=== PATIENT | male | born 1965 | race Caucasian/White ===

== ENCOUNTER 2020-01-03 15:28 | Emergency (ER) | payer BC, SELFPAY ==
[2020-01-03 15:34] VITALS: BP 203/88; PULSE 106; RESP 16; TEMP 36.2; O2SAT 97
--- NOTE | 2020-01-03 16:17 | ED.SKABFB ---
HPI - Skin/Abscess/Foreign Bdy General Chief complaint: Skin/Abscess/Foreign Body Stated complaint: LESION ON FACE FOR OVER A WEEK Time Seen by Provider: 01/03/20 15:44 History of Present Illness HPI narrative: Patient is a 54-year-old male who presents presents to the ER with a wound to the right cheek. It began about 1 week ago. He is seen his primary care doctor and has been started on Levaquin. He still has a couple days left. He is also using triamcinolone cream. Reports that started draining pus and that the lesion is going down in size and there is less redness and pain. No fevers or chills or sweats. No difficulty breathing or swallowing. Started off looking like an ingrown hair. Related Data Home Medications Medication Instructions Recorded Confirmed buspirone mg 01/03/20 01/03/20 gabapentin 01/03/20 insulin glargine [Basaglar KwikPen SUBCUT 01/03/20 U-100 Insulin] levofloxacin 01/03/20 losartan 01/03/20 metformin mg 01/03/20 neomycin-polymyxin B-dexameth drp 01/03/20 [Maxitrol] omeprazole 01/03/20 propranolol PO 01/03/20 simvastatin mg 01/03/20 timolol maleate drp 01/03/20 trazodone 01/03/20 triamcinolone acetonide applic TOPICAL 01/03/20 venlafaxine mg PO 01/03/20 ziprasidone HCl 01/03/20 Allergies Allergy/AdvReac Type Severity Reaction Status Date / Time morphine Allergy Unknown Pruritic Verified 01/03/20 15:36 rash fentanyl AdvReac Unknown Itching Verified 01/03/20 15:36 Review of Systems Constitutional: Constitutional: Denies chills and Denies fever(s) ENT: Denies dysphagia Respiratory: Respiratory: Denies cough and Denies dyspnea Integumentary/Breasts: Skin/Breast: Reports erythema and Reports rash Comments: Abscess PMFSH Past Medical History Medical History (Updated 01/03/20 @ 16:21 by Félix Miranda MD) Diabetes GERD (gastroesophageal reflux disease) Hypercholesterolemia Hypertension Family History Family History (Updated 11/07/13 @ 07:13 by DOCTOR UNKNOWN) Mother Family history of kidney disease Father Family history of chronic obstructive pulmonary disease Social History Social History Smoking status: Never smoker Alcohol intake: current Exam Narrative: Exam Narrative: GENERAL: Well-appearing, well-nourished, and in no acute distress. HEAD: Normocephalic, atraumatic. SKIN: Warm, dry. Reevaluate primary care carbuncle right face medical chest. With induration. Ulcerated center with white subcutaneous tissue with purulent drainage. No surrounding cellulitis. NEURO: No focal deficits. Alert and oriented x3. PSYCH: Normal mood and affect. Course Course Emergency Course: Patient informed of treatment plan. Purulent drainage expressed. Will give topical antibiotic for now and when he finishes his oral antibiotics. Recommend warm compresses and follow-up with his PCP. Not amenable for I&D. Vital Signs Vital signs: Vital Signs Temperature 97.2 F L 01/03/20 15:34 Pulse Rate 106 H 01/03/20 15:34 Respiratory Rate 16 01/03/20 15:34 Blood Pressure 203/88 H 01/03/20 15:34 Pulse Oximetry 97 01/03/20 15:34 Temperature 97.2 F L 01/03/20 15:34 Pulse Rate 106 H 01/03/20 15:34 Respiratory Rate 16 01/03/20 15:34 Blood Pressure 203/88 H 01/03/20 15:34 Pulse Oximetry 97 01/03/20 15:34 Discharge Plan Discharge Clinical Impression: Furuncle Patient Disposition: Home, Self-Care Condition: Stable Instructions: Antibiotic Form, Furunculosis and Carbunculosis (ED) Additional Instructions: Return to the ER if you have worsening pain, increased vomiting, or have additional concerns. Apply the topical antibiotic to help with the healing process. Follow-up with your primary care doctor. Also make sure you are taking your home medications as your blood pressure was quite high today. Prescriptions: New mupirocin 2 % ointment 1 applic topical TID Qty: 15 RF: 0 No Action venlaf
== END 2020-01-03 16:48 | disposition home or self-care (01) ==
PROVIDERS: Emergency Provider Emergency Medicine; PCP Family Medicine Adolescent Medicine
DX: L02.02 Furuncle of face (principal); E11.9 Type 2 diabetes mellitus without complications; K21.9 Gastro-esophageal reflux disease without esophagitis; E78.00 Pure hypercholesterolemia, unspecified; I10 Essential (primary) hypertension; Z79.4 Long term (current) use of insulin
CPT/HCPCS: 99283

== ENCOUNTER 2021-08-17 02:04 | Emergency (ER) | payer BC, SELFPAY ==
--- NOTE | ~2021-08-17 | CT_ITS ---
EXAMINATION: CT lumbar spine wo con DATE: 08/17/2021 02:51 INDICATION: Diffuse lumbar spine pain. Fall. TECHNIQUE: Computed tomography (CT) of the lumbar spine was performed without intravenous contrast. A utomated exposure control and iterative reconstruction technique were employed. The dose-length produ ct was 1384.48 mGy-cm. COMPARISON: CT abdomen and pelvis 07/08/2018 FINDINGS: There is 5 degrees dextrocurvature of lumbar spine. There is a compression fracture of L1 w ith 1/5 loss of height. Intervertebral disc heights are normal. The following disc levels are specifi jose discussed: L1-L2: The disc is bulging. There is severe bilateral facet joint osteoarthritis. There is mild bilat eral neural foraminal stenosis. There is no central canal stenosis. L2-L3: The disc does not extend beyond the endplate margin. There is severe bilateral facet joint ost eoarthritis. There is no neural foraminal stenosis. There is no central canal stenosis. L3-L4: The disc is bulging. There is severe bilateral facet joint osteoarthritis. There is mild bilat eral neural foraminal stenosis. There is mild central canal stenosis. L4-L5: The disc is bulging. There is severe right and moderate left facet joint osteoarthritis. There is mild bilateral neural foraminal stenosis. There is mild central canal stenosis. L5-S1: The disc does not extend beyond the endplate margin. There is severe bilateral facet joint ost eoarthritis. There is mild bilateral neural foraminal stenosis. There is no central canal stenosis. IMPRESSION: 1. Age indeterminant L1 compression fracture, new from 07/08/2018. 2. Mild lumbar spondylosis. Reviewed, dictated and finalized at location A.
--- NOTE | ~2021-08-17 | CT_ITS ---
EXAMINATION: CT brain wo con DATE: 08/17/2021 02:51 INDICATION: Syncope. TECHNIQUE: Computed tomography (CT) of the head was performed without intravenous contrast. The mA wa s adjusted according to patient size. Iterative reconstruction technique was employed. The dose-lengt h product was 605.33 mGy-cm. COMPARISON: Head CT 10/18/2018 FINDINGS: There are scattered areas of low attenuation in the cerebral white matter. There is no intr acranial hemorrhage, acute infarction, or abnormal intracranial mass lesion. The ventricles are cheryl l in size. There is mild mucosal thickening in the paranasal sinuses. There are likely changes of ocu lar lens replacement surgeries. The mastoid air cells are normal. IMPRESSION: 1. Worsened moderate nonspecific cerebral white matter disease, which likely represents chronic small vessel ischemic disease. Reviewed, dictated and finalized at location A. IMPRESSION: 1. Worsened moderate nonspecific cerebral white matter disease, which likely re presents chronic small vessel ischemic disease.
[2021-08-17 02:06] VITALS: BP 168/80; PULSE 103; RESP 18; TEMP 36.2; O2SAT 97
--- NOTE | 2021-08-17 02:31 | ECG_ITS ---
Measurements Intervals Orick Rate: 100 P: 63 GA: 161 QRS: 65 QRSD: 93 T: 60 QT: 343 QTc: 443 Interpretive Statements SINUS TACHYCARDIA NONSPECIFIC T-WAVE ABNORMALITY Electronically Signed On 08-17-2021 11:14:24 CDT by Pio Kennedy M.D.
--- NOTE | 2021-08-17 02:32 | ED.BACK ---
HPI - Back Pain/Injury General Chief Complaint: Back Pain/Injury Stated Complaint: fall, back pain Time Seen by Provider: 08/17/21 02:20 Source: patient History of Present Illness HPI Narrative: Patient presents with low back pain. Reports he was smoking marijuana started to cough and after coughing spell synopsized landing on a linoleum floor. The event happened a few hours ago but his pain is getting worse so he came to the ER for further evaluation. Enzo has had multiple back fractures related to trauma and is concerned for the same. He denies any bowel or bladder incontinence denies any focal numbness or weakness. Denies any chest pain lightheadedness dizziness now. Reports some mild nausea denies any vomiting. Related Data Home Medications Medication Instructions Recorded Confirmed insulin glargine 100 unit/mL (3 See Rx Instructions subcut DAILY 05/03/21 05/06/21 mL) subcutaneous pen (Basaglar KwikPen U-100 Insulin) losartan 100 mg tablet 100 mg PO DAILY 05/03/21 05/06/21 ziprasidone HCl 60 mg capsule 60 mg PO BID 05/03/21 05/06/21 Allergies Allergy/AdvReac Type Severity Reaction Status Date / Time morphine Allergy Unknown Pruritic Verified 08/17/21 02:09 rash fentanyl AdvReac Unknown Itching Verified 08/17/21 02:09 Review of Systems Review of Systems: CONSTITUTIONAL: Denies fever, chills, or sweats. EYES: Denies visual changes, redness, or discharge. ENT: Denies rhinorrhea, congestion, sore throat, or otalgia. CARDIOVASCULAR: Denies chest pain, palpitations, or edema. RESPIRATORY: Denies cough or dyspnea. GASTROINTESTINAL: Denies abdominal pain, nausea, vomiting, or diarrhea. GENITOURINARY: Denies dysuria or hematuria. SKIN: Denies rash or itching. MUSCULOSKELETAL: Denies joint pain, or myalgia. NEUROLOGIC: Denies headache, numbness, dizziness, or weakness. PSYCHIATRIC: Denies anxiety or depression. All systems reviewed & are unremarkable except as noted in HPI and below PMFSH Past Medical History Medical History Alcohol dependence, in remission Amputation of toe of left foot 2018, osteomyelitis Diabetes GERD (gastroesophageal reflux disease) Hypercholesterolemia Hypertension Vertebral fracture 2015 s/p trauma Surgical History Surgical History History of cholecystectomy 2012 Family History Family History Mother Family history of kidney disease Acute myocardial infarction Breast cancer Diabetes mellitus Hypertension Father Family history of chronic obstructive pulmonary disease Acute myocardial infarction Cerebrovascular accident Diabetes mellitus Hypertension Sibling Heart disease Acute myocardial infarction Diabetes mellitus Family history of kidney disease Hypertension Sibling Heart disease Hypertension Other Acute myocardial infarction Hypertension Other Depression Social History Social History Smoking status: Former smoker Tobacco type: cigarettes Second hand tobacco smoke exposure: No Smoking end date: 07/11/17 Alcohol intake: current Drinks per week: 135 Alcohol use details: Beers Substance use: never Substance use type: does not use Gender identity (if verbalized by the patient): Male Sexual Orientation (if Verbalized by the Patient): Straight or Heterosexual Spiritual care concerns: No Agree to blood products: Yes Exam Narrative: GENERAL: Well-appearing, well-nourished, and in no acute distress. HEAD: Normocephalic, atraumatic. EYES: PERRLA and EOMI. ENT: Nares clear, no rhinorrhea or epistaxis. Mucous membranes moist. NECK: Supple. No masses. No JVD ABDOMEN: Soft, nontender, nondistended, normal active bowel sounds. BACK: Diffuse low back pain left worse than right pain primarily aroun
[2021-08-17] MEDS: KETOROLAC 15 MG/ML VIAL (*BKC) IV PUSH (02:52)
[2021-08-17 02:54] LABS: Basophils Percent Auto 0.2 % (0.2-1.2); Eosinophils Absolute Auto 0.1 K/mm3 (0-0.3); Eosinophils Percent Auto 1.3 % (0-4.4); Hemoglobin 13.8 g/dL (14.0-18.0); Immature Granulocyte Absolute 0.04 K/mm3 (0.00-0.031); Immature Granulocyte Percent A 0.5 % (0-0.5); Lymphocytes Percent Auto 29.7 % (18.3-44.2); Mean Corpuscular HGB Conc 35.4 g/dl (32-36); Mean Corpuscular Hemoglobin 33.2 pg (26-34); Mean Corpuscular Volume 93.8 fl (80-100); Mean Platelet Volume 8.8 fl (7.4-10.4); Monocytes Percent Auto 11.9 % (2.6-8.5); Neutrophils Absolute Auto 4.7 K/mm3 (1.3-6.7); Neutrophils Percent Auto 56.4 % (45.5-73.1); Platelet Count Result 272 k/mm3 (150-375); Red Blood Count 4.16 M/mm3 (4.6-6.20); Red Cell Distribution Width 12.2 % (11.5-14.5); White Blood Count 8.4 K/mm3 (4.5-10.0)
[2021-08-17 03:04] LABS: Alanine Aminotransferase 36 U/L (6-50); Albumin Level 4.5 g/dL (3.5-5.1); Alkaline Phosphatase 115 U/L (38-126); Anion Gap 15 mmol/L (8-16); Aspartate Amino Transferase 44 U/L (17-59); Bilirubin,Total 0.7 mg/dL (0.2-1.3); Blood Urea Nitrogen 25 mg/dL (9-20); Calcium 9.5 mg/dL (8.4-10.2); Carbon Dioxide 20 mmol/L (22-30); Chloride 90 mmol/L (98-107); Estimated CRCL calculation 74 ml/min; Estimated Glomerular Filt Rate 53; Glucose 261 mg/dL (65-110); Potassium 4.2 mmol/L (3.4-5.0); Sodium 125 mmol/L (137-145)
[2021-08-17] MEDS: SODIUM CHLORIDE 0.9% IV 500 ML 999 ML IV CONT (03:47)
[2021-08-17 04:20] VITALS: BP 156/86; PULSE 81; RESP 18; O2SAT 98
== END 2021-08-17 04:22 | disposition home or self-care (01) ==
PROVIDERS: Emergency Provider Emergency Medicine; PCP Family Medicine Adolescent Medicine
DX: S39.92XA Unspecified injury of lower back, initial encounter (principal); R79.89 Other specified abnormal findings of blood chemistry; K21.9 Gastro-esophageal reflux disease without esophagitis; E78.00 Pure hypercholesterolemia, unspecified; I10 Essential (primary) hypertension; Z89.422 Acquired absence of other left toe(s); Z87.891 Personal history of nicotine dependence; R90.82 White matter disease, unspecified; R00.0 Tachycardia, unspecified; M47.816 Spondylosis without myelopathy or radiculopathy, lumbar region; W18.39XA Other fall on same level, initial encounter
CPT/HCPCS: 36415; 70450; 72131; 80053; 85025; 93005; 96361; 96374; 96375; 99284; J0131; J1885; J7040

== ENCOUNTER → 2022-05-02 13:01 | Outpatient (CLI) | payer BC, SELFPAY ==
--- NOTE | ~2022-05-02 | XR_ITS ---
EXAMINATION: XR chest 2V 05/02/2022 13:18 INDICATION: Dyspnea. Shortness of breath. PROCEDURE: 2 view chest COMPARISON: Comparison to multiple prior studies sequentially, with oldest reviewed study dated 02/12. FINDINGS: The lungs are clear. The cardiomediastinal silhouette is within normal limits. There are no pleural effusions. There is no pneumothorax suspected. IMPRESSION: 1: NO ACUTE CARDIOPULMONARY DISEASE. Reviewed, dictated and finalized at location B. 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
== END ==
PROVIDERS: PCP Family Medicine Adolescent Medicine; Visit Provider Family Medicine Adolescent Medicine
DX: R06.00 Dyspnea, unspecified (principal)
CPT/HCPCS: 71046

== ENCOUNTER → 2023-01-19 15:51 | Outpatient (CLI) | payer BC, SELFPAY ==
--- NOTE | ~2023-01-19 | XR_ITS ---
EXAMINATION: XR chest 2V DATE: 01/19/2023 16:15 INDICATION: Dyspnea. Wheezing. TECHNIQUE: Frontal and lateral views of the chest were obtained. COMPARISON: Chest 2 views 05/02/2022 FINDINGS: There is no pneumonia, pleural effusion, or pneumothorax. The heart size is normal. IMPRESSION: 1. No acute cardiopulmonary disease. Reviewed, dictated and finalized at location E. 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
== END ==
PROVIDERS: PCP Family Medicine Adolescent Medicine; Visit Provider Family Medicine Adolescent Medicine
DX: R06.09 Other forms of dyspnea (principal); R06.2 Wheezing
CPT/HCPCS: 71046

== ENCOUNTER 2023-02-18 13:40 | Emergency (ER) | payer BC, SELFPAY ==
[2023-02-18 13:51] VITALS: BP 157/84; PULSE 120; RESP 16; TEMP 36.9; O2SAT 96
--- NOTE | 2023-02-18 13:52 | ED.WOUNDLAC ---
HPI - Wound/Laceration General Chief Complaint: Wound/Laceration Stated Complaint: Left Foot Wound Time Seen by Provider: 02/18/23 14:00 Source: patient and family Mode of arrival: ambulatory Limitations: no limitations History of Present Illness HPI narrative: Rl is a 57-year-old male patient presenting to the clinic today with complaints of a wound to his left foot. He reports that his primary care provider scraped his wound yesterday and prescribed him some doxycycline for a wound infection. Patient reports that he has yet to start the doxycycline as he just picked it up this morning. Reports this morning he developed worsening of pain in the left foot as well as some swelling and what appears to be a blood blister. Patient reports that the area is very tender to palpation. White brought him in for evaluation. Patient is diabetic with neuropathy. Denies any fever, chills, or body aches. Related Data Home Medications Medication Instructions Recorded Confirmed doxycycline hyclate 100 mg tablet mg 02/18/23 Allergies Allergy/AdvReac Type Severity Reaction Status Date / Time morphine Allergy Unknown Pruritic Verified 02/18/23 13:54 rash fentanyl AdvReac Unknown Itching Verified 02/18/23 13:54 Review of Systems Review of Systems: Pertinent positives per HPI. Patient denies any fever, chills, rash, headache, visual changes, dizziness, cough, runny nose, sore throat, shortness of breath, chest pain, palpitations, nausea, vomiting, diarrhea, constipation, abdominal pain, or any urinary issues. [facility] Past Medical History Medical History Alcohol dependence, in remission Amputation of toe of left foot 2019, osteomyelitis Diabetes GERD (gastroesophageal reflux disease) Hypercholesterolemia Hypertension Vertebral fracture 2015 s/p trauma Surgical History Surgical History History of cholecystectomy 2011 Family History Family History Mother Family history of kidney disease Acute myocardial infarction Breast cancer Diabetes mellitus Hypertension Father Family history of chronic obstructive pulmonary disease Acute myocardial infarction Cerebrovascular accident Diabetes mellitus Hypertension Sibling Heart disease Acute myocardial infarction Diabetes mellitus Family history of kidney disease Hypertension Sibling Heart disease Hypertension Other Acute myocardial infarction Hypertension Other Depression Social History Social History (Reviewed 02/18/23 @ 14:15 by BRETT Ma Smoking status: Former smoker Tobacco type: cigarettes Second hand tobacco smoke exposure: No Smoking end date: 07/11/17 Alcohol intake: current Drinks per week: 135 Alcohol use details: Beers Substance use: never Substance use type: does not use Living arrangements: with family Occupation/Education: unemployed Gender identity (if verbalized by the patient): Male Sexual Orientation (if Verbalized by the Patient): Straight or Heterosexual Spiritual care concerns: No Agree to blood products: Yes Comments At the time of my signature, I reviewed and agree with the nursing past medical, surgical, social, and family history. There is no relevant family history pertinent to the patient complaint. Exam Narrative: General: Well-developed, well nourished, in no apparent distress Head: Normocephalic, atraumatic. Cardio: Regular rate and rhythm, s1 and s2 normal, no murmur appreciated. Resp: Clear to auscultation bilaterally, no rhonchi, rales, wheezing or rubs. Musculoskeletal: No deformity, tender to palpation over the lateral heel of the left foot with mild redness and erythema, approximately 1.5 cm x1.5cm blood blister to the left lateral posterior heel, grossly normal range of mot
== END 2023-02-18 14:16 | disposition home or self-care (01) ==
PROVIDERS: Emergency Provider Nurse Practitioner Family; PCP Family Medicine Adolescent Medicine
DX: S91.302A Unspecified open wound, left foot, initial encounter (principal); L08.9 Local infection of the skin and subcutaneous tissue, unspecified; X58.XXXA Exposure to other specified factors, initial encounter; S90.822A Blister (nonthermal), left foot, initial encounter; Z87.891 Personal history of nicotine dependence; E11.42 Type 2 diabetes mellitus with diabetic polyneuropathy; E78.00 Pure hypercholesterolemia, unspecified; I10 Essential (primary) hypertension
CPT/HCPCS: 10160; 87070; 87075; 87147; 87181; 87186; 87205; 99213; G0463

== ENCOUNTER 2023-02-21 16:20 | Emergency (ER) | payer BC, SELFPAY ==
--- NOTE | ~2023-02-21 | XR_ITS ---
EXAM: XR foot LT min 3V DATE: 02/21/2023 17:27 HISTORY: diabetic foot wound ON HEEL . COMPARISON: 08/03/2018. FINDINGS: There is post partial left second metatarsal head and second toe amputation. Normal minera lization. No fracture or dislocation. No lytic or blastic lesion. Severe degenerative change at the f irst MTP joint. Moderate degenerative change in multiple midfoot joints. Achilles and plantar entheso andrea. Vascular calcification. No erosion or periosteal change. Forefoot soft tissue swelling. IMPRESSION: No acute osseous finding in the left foot. Reviewed, dictated and finalized at location K. ION STYLIST
[2023-02-21 16:21] VITALS: BP 159/98; PULSE 105; RESP 20; TEMP 36.8; O2SAT 97
--- NOTE | 2023-02-21 16:58 | PC.NURSE ---
Pt stated to this RN the urgent care called me and told me I have MRSA and need IV antibiotics.
[2023-02-21 18:26] LABS: Basophils Absolute Auto 0.1 K/mm3 (0.0-0.1); Basophils Percent Auto 0.7 % (0.2-1.2); Eosinophils Absolute Auto 0.2 K/mm3 (0-0.3); Eosinophils Percent Auto 3.3 % (0-4.4); Hematocrit 42.9 % (42.0-52.0); Hemoglobin 14.4 g/dL (14.0-18.0); Immature Granulocyte Absolute 0.04 K/mm3 (0.00-0.031); Immature Granulocyte Percent A 0.6 % (0-0.5); Lymphocytes Absolute Auto 1.97 K/mm3 (0.9-3.2); Lymphocytes Percent Auto 28.3 % (18.3-44.2); Mean Corpuscular HGB Conc 33.6 g/dl (32-36); Mean Corpuscular Hemoglobin 32.7 pg (26-34); Mean Corpuscular Volume 97.5 fl (80-100); Mean Platelet Volume 9.4 fl (7.4-10.4); Monocytes Absolute Auto 0.6 K/mm3 (0.1-0.6); Monocytes Percent Auto 8.3 % (2.6-8.5); Neutrophils Absolute Auto 4.1 K/mm3 (1.3-6.7); Neutrophils Percent Auto 58.8 % (45.5-73.1); Platelet Count Result 323 k/mm3 (150-375); Red Cell Distribution Width 12.4 % (11.5-14.5)
--- NOTE | 2023-02-21 18:42 | ED.EXTPRO ---
HPI - Extremity Problem General Chief complaint: Extremity Problem,Nontraumatic Stated complaint: foot wound Time Seen by Provider: 02/21/23 17:31 History of Present Illness HPI Narrative: patient Is a 57-year-old male presenting with a foot wound. Patient states that he 1st had a crack in a thick callus in his left heel. He saw his doctor who scraped it and started him on doxycycline. States that it then turned into a blood blister. He had this drained at urgent care several days ago. He has seen his foot doctor twice since then. They debrided the blister and discussed wound care with the patient and his . They switched his doxycycline to clindamycin which he will be starting today. Patient states that he then received a call from urgent care stating he has MRSA and to come to the ER. States he was not having worsening pain or any worsening symptoms. No fevers or chills. No spreading redness. No drainage. States he would not be here if he had not received a call from urgent care. Related Data Home Medications Medication Instructions Recorded Confirmed doxycycline hyclate 100 mg tablet mg 02/18/23 Allergies Allergy/AdvReac Type Severity Reaction Status Date / Time morphine Allergy Unknown Pruritic Verified 02/18/23 13:54 rash fentanyl AdvReac Unknown Itching Verified 02/18/23 13:54 Review of Systems Review of Systems: All systems reviewed & are unremarkable except as noted in HPI and below PMFSH Past Medical History Medical History Alcohol dependence, in remission Amputation of toe of left foot 2019, osteomyelitis Diabetes GERD (gastroesophageal reflux disease) Hypercholesterolemia Hypertension Vertebral fracture 2015 s/p trauma Surgical History Surgical History History of cholecystectomy 2011 Family History Family History Mother Family history of kidney disease Acute myocardial infarction Breast cancer Diabetes mellitus Hypertension Father Family history of chronic obstructive pulmonary disease Acute myocardial infarction Cerebrovascular accident Diabetes mellitus Hypertension Sibling Heart disease Acute myocardial infarction Diabetes mellitus Family history of kidney disease Hypertension Sibling Heart disease Hypertension Other Acute myocardial infarction Hypertension Other Depression Social History Social History Smoking status: Former smoker Tobacco type: cigarettes Second hand tobacco smoke exposure: No Smoking end date: 07/11/17 Alcohol intake: current Drinks per week: 135 Alcohol use details: Beers Substance use: never Substance use type: does not use Living arrangements: with family Occupation/Education: unemployed Gender identity (if verbalized by the patient): Male Sexual Orientation (if Verbalized by the Patient): Straight or Heterosexual Spiritual care concerns: No Agree to blood products: Yes Exam Narrative: GENERAL: Well-appearing, In no acute distress, pleasant cooperative HEAD: Normocephalic, atraumatic. EYES: PERRLA and EOMI. ENT: grossly unremarkable NECK: Supple. CHEST: No respiratory distress. HEART: Regular rate and rhythm. Normal peripheral pulses. EXTREMITIES: left 2nd toe has been amputated, pt has an open wound lateral posterior heel on the left with healthy appearing granulation tissue at base, mild surrounding erythema, no abscesses or drainage, DP pulses 1+ bilaterally SKIN: Warm, as above. NEURO: Alert and oriented x3. PSYCH: Normal mood and affect. Course Vital Signs Vital signs: Vital Signs Temperature 98.3 F 02/21/23 16:21 Pulse Rate 105 H 02/21/23 16:21 Respiratory Rate 20 02/21/23 16:21 Blood Pressure 159/98 H 02/21
[2023-02-21 18:43] LABS: Anion Gap 10 mmol/L (8-16); Blood Urea Nitrogen 11 mg/dL (9-20); CRP 2.8 mg/dL (<1.0); Carbon Dioxide 29 mmol/L (22-30); Chloride 96 mmol/L (98-107); Estimated CRCL calculation 121 ml/min; Estimated Glomerular Filt Rate > 60; Glucose 253 mg/dL (65-110); Potassium 4.5 mmol/L (3.4-5.0); Sodium 135 mmol/L (137-145)
[2023-02-21 18:57] LABS: Erythrocyte Sedimentation Rate 36 mm/hr (0-20)
== END 2023-02-21 19:15 | disposition home or self-care (01) ==
PROVIDERS: Physician Assistant; Emergency Provider Emergency Medicine; PCP Family Medicine Adolescent Medicine
DX: L08.9 Local infection of the skin and subcutaneous tissue, unspecified (principal); K21.9 Gastro-esophageal reflux disease without esophagitis; I10 Essential (primary) hypertension; E78.5 Hyperlipidemia, unspecified; E11.9 Type 2 diabetes mellitus without complications
CPT/HCPCS: 36415; 73630; 80048; 85025; 85652; 86140; 99283

== ENCOUNTER 2023-02-24 12:40 | Outpatient (CLI) | payer BC, SELFPAY ==
--- NOTE | 2023-02-24 13:36 | ECHO_ITS ---
Patient Info Name: Rl Parker Age: 57 years : 1965 Gender: Male Ht: 72 in Wt: 325 lbs BSA: 2.81 m2 HR: 88 bpm BP: 152 / 83 mmHg Technical Quality: Poor, Fair Exam Date: 02/24/2023 1:41 PM Exam Location: Echo Lab Patient Status: Outpatient Admit Date: 02/24/2023 Staff Ordering Physician: Nando Head MD Finishing Range Supervisor: Karissa Larson RDCS Attending Provider: Nando Head MD Referring Physician: Sonido HEAD; Exam Type: CA echo dop color flow w con Study Info Indications - DYSPNEA /ORTHPNEA Complete two-dimensional, color flow and Doppler transthoracic echocardiogram is performed with contrast to opacify the left ventricle and to improve the deliniation of the left ventricle endocardial borders. Contrast/Agitated Saline Contrast/Ag. Saline: Definity Amount: 2.00 ml Administered By: Karissa Larson [facility] Existing IV Access: Yes New IV Access: Left Site Condition: IV removed Reason for Poor Study: patient body habitus Summary 1. Definity contrast administered improved wall motion interpretation. 2. Left ventricular chamber dimension is normal. 3. Left ventricular systolic function is normal, estimated at 60-65%. 4. There is mild concentric increased left ventricular wall thickness. 5. The left ventricular diastolic function is abnormal. 6. E/e' 14 is mildly elevated. 7. Left atrial chamber dimension is mildly enlarged. 8. Right atrial chamber dimension is mildly enlarged. 9. There is trace mitral valve regurgitation. 10. No pulmonary hypertension, estimated pulmonary arterial systolic pressure is 39 mmHg. Left Ventricle E/e' 14 is mildly elevated. Definity contrast administered improved wall motion interpretation. Left ventricular chamber dimension is normal. Left ventricular systolic function is normal, estimated at 60-65%. There is mild concentric increased left ventricular wall thickness. The left ventricular diastolic function is abnormal. Right Ventricle Right ventricular chamber dimension is normal. Right ventricular systolic function is normal. Left Atria Left atrial chamber dimension is mildly enlarged. Right Atria Right atrial chamber dimension is mildly enlarged. Aortic Valve The aortic valve is probable trileaflet. There is no aortic valve stenosis. There is no aortic valve regurgitation. Pulmonic Valve There is no pulmonic regurgitation. Mitral Valve There is no mitral valve stenosis. There is trace mitral valve regurgitation. Tricuspid Valve There is no tricuspid valve regurgitation. No pulmonary hypertension, estimated pulmonary arterial systolic pressure is 39 mmHg. Pericardium/Pleural There is no pericardial effusion. Inferior Vena Cava Normal inferior vena cava with >50% collapse upon inspiration consistent with normal right atrial pressure, 5 mmHg. Aorta The aortic root size at the sinus of Valsalva is normal. Left Ventricular Outflow Tract Name Value Normal LVOT 2D LVOT Diameter 2.12 cm LVOT Doppler LVOT Peak Velocity 150.92 cm/s LVOT Peak Gradient 9 mmHg LVOT Mean Gradient 5 mmHg
[2023-02-24] MEDS: PERFLUTREN LIPID MICROSPHERES 1.5 ML VIAL DILUTED TO 10 ML TOTAL VOLUME IV PUSH (14:30)
--- NOTE | 2023-02-24 15:29 | IVDEFINITY ---
Prior to administration of IV Definity the patient was educated on the risks and benefits of the imaging enhancing agent including potential adverse side effects. The patient verbalized understanding. Allergies were verified. No exclusion criteria were identified and at least one of the following inclusion criteria were met: 1) physician request, 2) patient technically difficult to image (per the [place] [employer] guidelines of two or more segments not discernable within the apical view), or 3) questionable left ventricular function. ?
--- NOTE | 2023-02-27 14:18 | WPDPFTINT ---
PFT Procedure Performed PFT Procedure Performed Flow Vol Loop Spirometry w/o Bronchodil PFT Interpretation This is a pulmonary function test with spirometry. The test was performed and results interpreted in accordance with the 2019 and 2005 ATS/ERS Task Force guidelines respectively using the Global Lung Function Initiative-2012 reference equations. Patient demonstrated good effort and cooperation. Reproducibility criteria were met. The quality of the spirometry maneuver was Grade A. Findings: Spirometry: There is decreased maximal expiratory airflow at all lung volumes. The contour the inspiratory flow tracing is normal. The FVC is 3.98 L, 77% predicted. The FEV1 is 2.64 L, 66% predicted. The FEV1: FVC ratio 66%. Impression. There is a moderate obstructive abnormality. A concurrent restrictive ventilatory abnormality cannot be excluded as lung volumes were not measured. There are no prior studies for comparison
== END 2023-02-24 12:41 | disposition home or self-care (01) ==
LOC: ANHPFT 12:42
PROVIDERS: PCP Family Medicine Adolescent Medicine; Visit Provider Family Medicine Adolescent Medicine
DX: R06.09 Other forms of dyspnea (principal); R94.2 Abnormal results of pulmonary function studies
CPT/HCPCS: 94375; C8929; Q9957